=== PATIENT | male | born 1950 | race Caucasian/White ===

== ENCOUNTER 2020-10-26 10:18 | Emergency (ER) | payer MEDICARE, OTHER ==
[2020-10-26 13:16] LABS: EOSINOPHIL 2.8 % (0-7); HCT 44.1 % (42.0-52.0); HGB 14.1 g/dl (13.2-18.0); MCH 28.8 pg (25.0-31.0); MCV 90.2 fL (78.0-100.0); MPV 9.4 fL (6.0-9.5); NEUTROPHIL 57.5 % (41-80); NRBC 0; PLT 199 K/uL (150-400); RBC 4.89 M/uL (4.70-6.00); RDW 13.2 % (11.5-14.0); WBC 5.7 K/uL (4.0-10.5)
[2020-10-26 13:32] LABS: BUN/CREAT RATIO (CALC) 19.4 RATIO; CREATININE 1.08 mg/dL (0.67-1.17); POTASSIUM 4.8 mmol/L (3.5-5.1)
== END 2020-10-26 15:20 | disposition home or self-care (01) ==
LOC: FER 10:18
PROVIDERS: Nurse Practitioner Family
DX: S86.912A Strain of unspecified muscle(s) and tendon(s) at lower leg level, left leg, initial encounter (principal); I10 Essential (primary) hypertension; Z98.890 Other specified postprocedural states; W19.XXXA Unspecified fall, initial encounter
CPT/HCPCS: 36415; 73564; 80048; 85025; 93971